=== PATIENT | male | born 1935 | race Caucasian/White ===

== ENCOUNTER → 2017-07-22 | Outpatient (CLI) | payer OTHER ==
[~2017-07-22] MED LIST: ASCO500C PO; ASPI1TAB7 PO; CINN500C7 PO; CO Q200C3 PO; FISH1000 PO; GLUC500C56 PO; HCTZ25 PO; LIVA4TAB PO; LORA1TAB PO; LOSA50TA PO; METO50TA PO; NEXI20CA PO; NORT1CAP54 PO; TAB-TAB PO; VITA20003 PO
--- NOTE | 2017-07-22 11:15 | RADRPT ---
EXAM DATE/TIME: 07/22/2017 00:00 [place] COMPARISON: No previous studies available for comparison. INDICATIONS : Dysphagia FLUORO TIME: 0.9 minutes IMAGE COUNT: CONTRAST: Dose as prescribed by speech pathologist. MEDICAL HISTORY : None. SURGICAL HISTORY : None. ENCOUNTER: Initial ACUITY: 1 month PAIN SCORE: 0/10 LOCATION: Esophagus FINDINGS: A modified barium swallow was performed with speech pathology. Patient was given a variety of liquids to swallow. For a full detailed report, see report by the speech pathologist. CONCLUSION: 1. No aspiration noted. See speech pathology report. Tomer Paris MD on July 22, 2017 at 11:12 Board Certified Radiologist. This report was verified electronically.
== END ==
LOC: HRAD 10:00
PROVIDERS: ATTEND Specialist
DX: R13.10 Dysphagia, unspecified (principal)
CPT/HCPCS: 74230; 92611; G8996; G8997; G8998

== ENCOUNTER 2017-10-06 07:51 | Observation (INO) ==
--- NOTE | 2017-10-06 08:24 | ED ---
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 States that he had similar episodes in the past and at one point it was secondary to cardiac disease and he had a bypass, but he is unsure the diagnosis with the other times. States that while in the ambulance he developed substernal chest pain, pressure-like, nonradiating, constant, approximately 2 out of 10, no aggravating factors, unsure of any alleviating factors. Denies recent travel, fever, cough, nausea, vomiting, or abdominal pain. States sometimes he gets swelling in his left lower extremity secondary to bypass surgery, but no swelling currently. States that he took 325 mg of p.o. aspirin this morning at approximately 7. Patient does have a history of hypercholesterolemia and hypertension. Related Data Home Medications Medication Instructions Recorded Confirmed aspirin [Aspirin Low Dose] 81 mg PO DAILY 10/06/17 10/06/17 cyclosporine [Restasis] 1 drp OPHTHALMIC (EYE) Q12H 10/06/17 10/06/17 famotidine [Pepcid] 20 mg PO DAILY 10/06/17 10/06/17 hydrochlorothiazide 25 mg PO DAILY 10/06/17 10/06/17 lansoprazole [Prevacid] 30 mg PO DAILY 10/06/17 10/06/17 losartan 50 mg PO BID 10/06/17 10/06/17 multivitamin 1 cap PO DAILY 10/06/17 10/06/17 nortriptyline 10 mg PO DAILY 10/06/17 10/06/17 rosuvastatin [Crestor] 5 mg PO DAILY 10/06/17 10/06/17 sennosides [senna] 8.6 mg PO DAILY PRN 10/06/17 10/06/17 Allergies Allergy/AdvReac Type Severity Reaction Status Date / Time captopril Allergy Severe Cough/ Verified 10/06/17 08:03 CHEST PAIN trandolapril Allergy Severe COUGH Verified 10/06/17 08:03 Review of Systems ROS Unobtainable All other systems reviewed negative except as stated in HPI PMFSH Medical History Medical History Abnormal passage of bladder (Acute) Enlarged prostate (Acute) GERD (gastroesophageal reflux disease) (Acute) Glaucoma (Acute) High blood pressure (Acute) High cholesterol (Acute) Surgical History Surgical History History of prostate surgery (Acute) Hx of heart bypass surgery (Acute) Social History Social History Substance History: No History of Abuse Second Hand Smoke Exposure: No Smoking Status: Never smoker How Often Do You Have a Drink Containing Alcohol: 2 to 4 times a month Recent Travel in [facility] within the Last 8 Weeks: No Recent Out of Country Travel within the Last 8 Weeks: No Exam Narrative Exam Narrative: GENERAL: No acute distress. SKIN: Focused skin assessment warm/dry. HEAD: Atraumatic. Normocephalic. EYES: Pupils equal and round. No scleral icterus. No injection or drainage. ENT: No nasal bleeding or discharge. Mucous membranes pink and moist. NECK: Trachea midline. No JVD. CARDIOVASCULAR: Regular rate and rhythm. No murmur appreciated. RESPIRATORY: No accessory muscle use. Clear to auscultation. Breath sounds equal bilaterally. GASTROINTESTINAL: Abdomen soft, non-tender, nondistended. Hepatic and splenic margins not palpable. MUSCULOSKELETAL: No obvious deformities. No clubbing. No cyanosis. No edema. NEUROLOGICAL: Awake and alert. No obvious cranial nerve deficits. Motor grossly within normal limits. Normal speech. PSYCHIATRIC: Appropriate mood and affect; insight and judgment normal. Course Initial Documented Vital Signs Temperature 97.8 F 10/06/17 08:04 Pulse Rate 74 10/06/17 08:04 Respiratory Rate 20 10/06/17 08:04 Blood Pressure 160/77 H 10/06/17 08:04 Pulse Oximetry 96 10/06/17 08:04 Last Documented Vital Signs Temperature 97.7 F 10/06/17 09:12 Pulse Rate 68 10/06/17 09:12 Respiratory Rate 18 10/06/17 09:12 Blood Pressure 107/65 10/06/17 09:12 Pulse Oximetry 96 10/06/17 09:12 Medical Decision Making MDM Narrative Medical decision making narrative: Patient presents to the emergency department complaining of shortness of breath and substernal chest pain. Patient placed on monitoring and evaluation advisor, continuous pulse ox, and IV access obtained. EKG, chest x- ray, labs and 1 sublingual nitroglycerin 0.4 mg ordered. CBC and coags within normal limits. CXR FINDINGS: Median sternotomy wires are noted status post cardiac surgery. The heart is normal. The pulmonary vascular pattern is normal. The lungs are clear.CONCLUSION: Negative examination. Troponin and chemistry wnl. Will admit to chest pain center. Patient is chest pain free after 1 SL NTG. Differential Diagnosis Differential Diagnosis: ACS, PE, CHF, pneumonia, pulmonary edema, Lab Data Result diagrams: 10/06/17 08:20 10/06/17 08:20 Lab Results 10/06/17 10/06/17 10/06/17 Range/Units 08:20 08:20 08:20 WBC 5.1 (4.0-11.0) th/mm3 RBC 5.09 (4.50-5.90) mil/mm3 Hgb 13.9 (13.0-17.0) gm/dL Hct 41.5 (39.0-51.0) % MCV 81.5 (80.0-100.0) fL MCH 27.3 (27.0-34.0) pg MCHC 33.5 (32.0-36.0) % RDW 13.9 (11.6-17.2) % Plt Count 157 (150-450) th/mm3 MPV 9.4 (7.0-11.0) fL Neut % (Auto) 67.4 (16.0-70.0) % Lymph % (Auto) 21.8 (9.0-44.0) % [place] % (Auto) 7.6 (0.0-8.0) % Eos % (Auto) 2.4 (0.0-4.0) % Baso % (Auto) 0.8 (0.0-2.0) % Neut # (Auto) 3.5 (1.8-7.7) th/mm3 Lymph # (Auto) 1.1 (1.0-4.8) th/mm3 [place] # (Auto) 0.4 (0.0-0.9) th/mm3 Eos # (Auto) 0.1 (0.0-0.4) th/mm3 Baso # (Auto) 0.0 (0.0-0.2) th/mm3 WBC Differential . Differential Comment Auto diff final PT (9.8-11.6) sec INR Ratio APTT (24.3-30.1) sec Sodium 137 (136-145) meq/L Potassium 3.9 (3.5-5.1) meq/L Chloride 103 (98-107) meq/L Carbon Dioxide 22.6 (21.0-32.0) meq/L Anion Gap 11 (5-15) meq/L BUN 14 (7-18) mg/dL Creatinine 1.25 (0.60-1.30) mg/dL Estimated GFR 55 L (>89) mL/min Random Glucose 105 (74-106) mg/dL Calcium 8.7 (8.5-10.1) mg/dL Magnesium 2.5 (1.5-2.5) mg/dL Total Bilirubin 0.5 (0.2-1.0) mg/dL AST 23 (15-37) U/L ALT 21 (12-78) U/L Alkaline Phosphatase 66 (45-117) U/L Total Creatine Kinase 139 (39-308) U/L Troponin I Less than 0.02 L (0.02-0.05) ng/mL B-Natriuretic Peptide 30 (0-100) pg/mL Total Protein 7.2 (6.4-8.2) g/dL Albumin 3.3 L (3.4-5.0) g/dL 10/06/17 Range/Units 08:45 WBC (4.0-11.0) th/mm3 RBC (4.50-5.90) mil/mm3 Hgb (13.0-17.0) gm/dL Hct (39.0-51.0) % MCV (80.0-100.0) fL MCH (27.0-34.0) pg MCHC (32.0-36.0) % RDW (11.6-17.2) % Plt Count (150-450) th/mm3 MPV (7.0-11.0) fL Neut % (Auto) (16.0-70.0) % Lymph % (Auto) (9.0-44.0) % [place] % (Auto) (0.0-8.0) % Eos % (Auto) (0.0-4.0) % Baso % (Auto) (0.0-2.0) % Neut # (Auto) (1.8-7.7) th/mm3 Lymph # (Auto) (1.0-4.8) th/mm3 [place] # (Auto) (0.0-0.9) th/mm3 Eos # (Auto) (0.0-0.4) th/mm3 Baso # (Auto) (0.0-0.2) th/mm3 WBC Differential Differential Comment PT 11.1 (9.8-11.6) sec INR 1.1 Ratio APTT 23.1 L (24.3-30.1) sec Sodium (136-145) meq/L Potassium (3.5-5.1) meq/L Chloride (98-107) meq/L Carbon Dioxide (21.0-32.0) meq/L Anion Gap (5-15) meq/L BUN (7-18) mg/dL Creatinine (0.60-1.30) mg/dL Estimated GFR (>89) mL/min Random Glucose (74-106) mg/dL Calcium (8.5-10.1) mg/dL Magnesium (1.5-2.5) mg/dL Total Bilirubin (0.2-1.0) mg/dL AST (15-37) U/L ALT (12-78) U/L Alkaline Phosphatase (45-117) U/L Total Creatine Kinase (39-308) U/L Troponin I (0.02-0.05) ng/mL B-Natriuretic Peptide (0-100) pg/mL Total Protein (6.4-8.2) g/dL Albumin (3.4-5.0) g/dL Imaging Data Radiologist's impression: Chest X-Ray 10/06/17 08:19 CONCLUSION: Negative examination. ECG Data Attestation: I personally reviewed and interpreted this ECG as follows: (Left axis deviation, right bundle branch block, T-wave inversion in leads III and V1, Sinus rhythm, rate 75, prolonged LA interval indicating first-degree AV block, QTC 448, ST depression in V2 and V3) Discharge Plan Discharge Disposition Patient Disposition: 30 Still Patient Discharge Condition Condition: Stable Discharge Details Diagnosis: Chest pain Physicians Team ED Provider: Yuliya Black Primary Care Provider: Binh Potter Rxs /Orders / Referrals /Forms Prescriptions: No Action losartan 50 mg Tablet 50 mg PO BID RF: 0 sennosides [senna] 8.6 mg Tablet 8.6 mg PO DAILY PRN (Reason: Constipation) RF: 0 aspirin [Aspirin Low Dose] 81 mg Tablet,Delayed Release (Dr/Ec) 81 mg PO DAILY RF: 0 famotidine [Pepcid] 20 mg Tablet 20 mg PO DAILY RF: 0 nortriptyline 10 mg Capsule 10 mg PO DAILY RF: 0 lansoprazole [Prevacid] 30 mg Capsule,Delayed Release(Dr/Ec) 30 mg PO DAILY RF: 0 hydrochlorothiazide 25 mg Tablet 25 mg PO DAILY RF: 0 multivitamin Capsule 1 cap PO DAILY RF: 0 cyclosporine [Restasis] 0.05 % [place] 1 drp OPHTHALMIC (EYE) Q12H RF: 0 rosuvastatin [Crestor] 5 mg Tablet 5 mg PO DAILY RF: 0 Status ED Status: With Doctor
[2017-10-06 08:58] LABS: Baso % (Auto) 0.8 % (0.0-2.0); Eos # (Auto) 0.1 th/mm3 (0.0-0.4); Eos % (Auto) 2.4 % (0.0-4.0); Hematocrit 41.5 % (39.0-51.0); Hemoglobin 13.9 gm/dL (13.0-17.0); Lymph # (Auto) 1.1 th/mm3 (1.0-4.8); Lymph % (Auto) 21.8 % (9.0-44.0); Mean Corpuscular HGB Conc 33.5 % (32.0-36.0); Mean Corpuscular Hemoglobin 27.3 pg (27.0-34.0); Mean Corpuscular Volume 81.5 fL (80.0-100.0); Mean Platelet Volume 9.4 fL (7.0-11.0); Mono # (Auto) 0.4 th/mm3 (0.0-0.9); Mono % (Auto) 7.6 % (0.0-8.0); Neut # (Auto) 3.5 th/mm3 (1.8-7.7); Neut % (Auto) 67.4 % (16.0-70.0); Platelet Count 157 th/mm3 (150-450); Red Blood Count 5.09 mil/mm3 (4.50-5.90); Red Cell Distribution Width 13.9 % (11.6-17.2); White Blood Count 5.1 th/mm3 (4.0-11.0)
--- NOTE | 2017-10-06 09:05 | XR ---
EXAM DATE: 10/06/2017 8:40 AM EDT AGE/SEX: 82 years / Male INDICATIONS: Short of breath since this morning. CLINICAL DATA: This is the patient's initial encounter. Patient reports that signs and symptoms have been present for 1 day and indicates a pain score of 0/10. MEDICAL/SURGICAL HISTORY: . Hypertension. Diabetes mellitus type 2. Gastroesophageal reflux dis ease. CABG. Cardiac catherization. . COMPARISON: [facility] [place], CHEST SINGLE AP, 04/19/2015. . FINDINGS: Median sternotomy wires are noted status post cardiac surgery. The heart is normal. The pulmonary vas cular pattern is normal. The lungs are clear. CONCLUSION: Negative examination. Electronically signed by: Jayme Feliciano MD 10/06/2017 9:03 AM EDT
[2017-10-06 09:07] LABS: Activated Partial Thrombo Time 23.1 sec (24.3-30.1); INR 1.1 Ratio; Prothrombin Time 11.1 sec (9.8-11.6)
[2017-10-06 09:30] LABS: Alanine Aminotransferase 21 U/L (12-78); Albumin 3.3 g/dL (3.4-5.0); Anion Gap 11 meq/L (5-15); Aspartate Aminotransferase 23 U/L (15-37); Blood Urea Nitrogen 14 mg/dL (7-18); Calcium 8.7 mg/dL (8.5-10.1); Carbon Dioxide 22.6 meq/L (21.0-32.0); Chloride 103 meq/L (98-107); Glomerular Filtration Rate 55 mL/min (>89); Glucose,Random 105 mg/dL (74-106); Magnesium 2.5 mg/dL (1.5-2.5); Sodium 137 meq/L (136-145)
[2017-10-06 09:32] LABS: Alkaline Phosphatase 66 U/L (45-117); Creatine Kinase 139 U/L (39-308); Potassium 3.9 meq/L (3.5-5.1); Total Protein 7.2 g/dL (6.4-8.2)
[2017-10-06 09:44] LABS: Creatine Kinase MB 1.1 ng/mL (0.5-3.6)
[2017-10-06] MEDS ORDERED: ALPRAZolam 0.25 MG Tablet PO PRN (11:55)
[2017-10-06] MEDS ORDERED: Acetaminophen 500 MG Tablet PO PRN (11:59)
--- NOTE | 2017-10-06 13:41 | MH ---
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 He has had a lot of stress lately and he thinks maybe this was stress, but he was concerned that this was his heart as this is somewhat similar to what he has had 6-7 years ago, and he had bypass surgery after that. 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 Zabala using mammary artery to his circumflex or ramus branch and a vein graft to his LAD. He has done reasonably well since that time; however, because of back problems he has become much less active in the past 8-10 months. He has had previous nuclears in Dr. Duran's office that have not shown anything significant. He was given nitroglycerin here in the ED after being transported by [facility]. By then, his symptoms were already fairly dissipated and relieved and the nitro gave him a headache, but he is not sure if the nitro really made any other difference. PAST HISTORY: Includes hypertension, hyperlipidemia and reflux. He does take medications for these. He also has glaucoma and takes medications for that. He has had previous prostate problems as well. He has had prostate surgery in the past and bypass surgery in the past. He has never been a smoker. He does not drink significantly. He still works as a realtor. MEDICATIONS: Include aspirin 81 mg daily, Restasis 1 drop b.i.d., Pepcid 20 mg daily, HCTZ 25 mg daily, Prevacid or Nexium. He is presently on Prevacid 30 mg daily. He takes losartan 50 mg IV for blood pressure and nortriptyline 10 mg daily, and Crestor 5 mg daily, and a stool softener. ALLERGIES: HE IS ALLERGIC TO CAPTOPRIL AND TRANDOLAPRIL. FAMILY HISTORY: He has no strong family history of heart trouble. REVIEW OF SYSTEMS: Reveals no recent neurological problems. He has glaucoma and uses medicines. No other HEENT problems. He has had no chronic lung disease. He has had heart disease as mentioned. He had no recent GI problems. He has had previous prostate surgery. No peripheral vascular disease and no edema. PHYSICAL EXAMINATION: VITAL SIGNS: Blood pressure 130/84 at present. Initial blood pressure 160/77. O2 saturation 96%. HEENT: Eyes are clear. Throat is clear. NECK: Supple. There are no carotid bruits. There is no neck vein distention at 30 degrees. LUNGS: Clear to auscultation. HEART: Sounds reveal normal S1 and a somewhat accentuated S2, with a very brief murmur of aortic regurgitation heard at the upper left and right sternal borders and over the sternum. This does not radiate to the apex. There is no chest wall tenderness. ABDOMEN: Benign with no masses or bruits. EXTREMITIES: Peripheral pulses are intact and there is no peripheral edema. DIAGNOSTIC STUDIES: Electrocardiogram shows right bundle branch block. Chest x-ray showed evidence of previous bypass surgery. The first troponin was negative. Creatinine 1.25 with BUN 14. ASSESSMENT: The patient's symptoms could be ischemia, although it is at least equally likely that this may have been a stress episode and that is what he thinks it is. He did not have typical angina symptoms with his first and second catheterizations, but ended up having bypass surgery. He is not very active now to determine if he is having any exertional angina. He thinks his last nuclear scan was over a year ago. He had an ultrasound in Dr. Duran's office in March and Dr. Duran reassured him that he had only minor leakage of his valve. PLAN: If second troponin is negative and second EKG is negative, we will proceed with Lexiscan nuclear stress test this afternoon. Hopefully, this will be negative. If there is evidence of significant reversible ischemia, he will be admitted to the [facility] service with consultation by Dr. Duran. MD MARY Castillo/kavita/tsering , 11:52 AM , 12:04 PM [place]
[2017-10-06 14:04] LABS: Creatine Kinase 109 U/L (39-308)
[2017-10-06] MEDS ORDERED: Regadenoson Inj 0.4 MG/5 ML Syringe IV.PUSH ONE (15:18)
--- NOTE | 2017-10-06 16:02 | ECG ---
Date Performed: 10/06/2017 Time Performed: 08:05:03 PTAGE: 82 years EKG: Sinus rhythm WITH FIRST DEGREE AV BLOCK RIGHT BUNDLE BRANCH BLOCK ABNORMAL ECG PREVIOUS TRACING : 04/19/2015 21.23 Since previous tracing, no significant change noted DOCTOR: Efrem Bernabe Interpretating Date/Time 10/06/2017 16:01:24
--- NOTE | 2017-10-06 16:46 | NM ---
EXAM DATE: 10/06/2017 4:20 PM EDT AGE/SEX: 82 years / Male INDICATIONS:Angina. . Chest pain. CLINICAL DATA: This is the patient's initial encounter. Patient reports that signs and symptoms have been present for 1 day and indicates a pain score of 0/10. MEDICAL/SURGICAL HISTORY: Hypercholesterolemia. Hypertension. CABG. Angioplasty. COMPARISON: [facility], MYOCARDIAL PERF PHARM SPECT, 04/19/2015. . No external comparison. DOSE: 8.3 mCi Tc 99m Myoview at rest 26.9 mCi [id number] at stress 0.4 mg Lexiscan STRESS SYMPTOMS: Dyspnea. EJECTION FRACTION: 69 % TECHNIQUE: The patient underwent pharmacologic stress with infusion of prescribed dose. Continuous ECG tracing was monitored during stress. Gated SPECT imaging was performed after stress and conventi onal SPECT imaging was performed at rest. The examination was performed on a SPECT/CT scanner, both attenuation and non-corrected datasets were reviewed. FINDINGS: Distribution: The maximum perfused segment at stress is in the anterior wall. Perfusion Study: The pattern of perfusion at stress is within normal limits. Gated Study: There are intact wall motion and wall thickening without hypokinetic or dyskinetic segm ents. The ejection fraction is calculated at 69%. RISK CATEGORY: Low (<1% Annual Motality Rate) 1. Normal wall motion and calculated ejection fraction. 2. No fixed or reversible wall defect to suggest ischemia or infarction. Electronically signed by: Rafat Mcallister MD 10/06/2017 4:44 PM EDT
[2017-10-07] MEDS ORDERED: Famotidine 20 MG Tablet PO SCH (09:00)
[2017-10-07] MEDS ORDERED: Nortriptyline 10 MG Capsule PO SCH (09:00)
[2017-10-07] MEDS ORDERED: Aspirin 325 MG Tablet PO SCH (09:00)
[2017-10-07] MEDS ORDERED: hydroCHLOROthiazide 25 MG Tablet PO SCH (09:00)
--- NOTE | 2017-10-07 10:48 | TR ---
Date Performed: 10/06/2017 Time Performed: 15:09:27 DOCTOR: Efrem Bernabe DRUG LIST: CLINICAL HISTORY: REASON FOR TEST: REASON FOR ENDING: OBSERVATION: CONCLUSION: COMMENTS: Lexiscan stress test was performed under standard four minute protocol. Radionuclide was injected one minute prior to ending the test. No electrocardiographic abormalities were present t o suggest ischemia. Nuclear imaging and interpretation are pending.
== END 2017-10-06 18:42 | disposition home or self-care (01) ==
LOC: NEPE 07:51 → NEPGCP 07:51 → NEDA 07:51 → NEPGCP 15:24